=== PATIENT | male | born 1990 | race Caucasian/White ===

== ENCOUNTER 2019-05-14 22:07 | Emergency (ER) | payer OTHER | END 2019-05-15 00:22 | disposition other institution (70) | LOC: ED 22:07 | DX: Z02.89 Encounter for other administrative examinations (principal) ==

== ENCOUNTER 2019-05-14 22:07 | Emergency (ER) | payer SELFPAY ==
[~2019-05-14] VITALS: Ht 200.7 cm; Wt 108.9 kg
[2019-05-14 22:15] VITALS: Ht 200.7 cm; Wt 108.9 kg
[2019-05-15 00:20] VITALS: BP 149/85
== END 2019-05-15 00:22 | disposition other institution (70) ==
LOC: ED 22:07
DX: S00.83XA Contusion of other part of head, initial encounter (principal); S09.8XXA Other specified injuries of head, initial encounter; X58.XXXA Exposure to other specified factors, initial encounter; Y93.89 Activity, other specified; Y92.89 Other specified places as the place of occurrence of the external cause; Y99.8 Other external cause status